=== PATIENT | female | born 1975 | race Caucasian/White ===

== ENCOUNTER → 2017-11-06 | Outpatient (CLI) | payer OTHER | END | disposition home or self-care (01) | LOC: C.PAPS 09:13 | PROVIDERS: ATTEND Physician Assistant | DX: Z12.4 Encounter for screening for malignant neoplasm of cervix (principal) ==

== ENCOUNTER 2021-06-26 12:47 | Observation (INO) ==
[2021-06-26 13:25] LABS: Basophils # (auto) 0.01 K/uL (0-0.2); Basophils % (auto) 0.2 %; Eosinophils # (auto) 0.07 K/uL (0-0.5); Eosinophils % (auto) 1.1 %; Hematocrit (blood only) 27.4 % (37-47); Hemoglobin 8.2 g/dL (12.0-16.0); Immature Granulocytes # (auto) 0.01 K/uL (0.00-0.02); Immature Granulocytes % (auto) 0.2 %; Lymphocytes # (auto) 1.38 K/uL (1.2-3.4); Mean Corpuscular Hemoglobin 23.4 pg (25-34); Mean Corpuscular Hgb Conc 29.9 g/dL (32-36); Mean Corpuscular Volume 78.3 fL (80-100); Monocytes # (auto) 0.55 K/uL (0.11-0.59); Monocytes % (auto) 8.4 %; Neutrophils # (auto) 4.54 K/uL (1.4-6.5); Neutrophils % (auto) 69.1 %; Platelet Count 241 K/uL (130-400); RDW Coefficient of Variation 18.5 % (11.5-14.5); RDW Standard Deviation 52.8 fL (36.4-46.3); White Blood Count 6.56 K/uL (4.8-10.8)
[2021-06-26 13:35] LABS: Partial Thromboplastin Time 25.7 Seconds (21.0-31.0); Prothrombin Time 10.3 Seconds (9.0-12.0)
--- NOTE | 2021-06-26 13:35 | XRay Report ---
XR chest 1V portable CLINICAL HISTORY: Atypical chest pain. COMPARISON STUDY: No previous studies for comparison. FINDINGS: Patient is mildly rotated. Lung volumes are normal. Lungs are clear. There is no pneumothor ax or pleural effusion. Cardiac size is normal. Mediastinal contours are normal. There is no evidence for pulmonary edema. IMPRESSION: No acute cardiopulmonary findings. ACT 112: Negative or not required by law. Electronically signed by: Cedrick Austin M.D. 06/26/2021 1:34 PM
[2021-06-26 13:42] LABS: Alanine Aminotransferase 15 U/L (12-78); Albumin Level 3.6 gm/dl (3.4-5.0); Aspartate Aminotransferase 11 U/L (15-37); BUN Creatinine Ratio 9.9 (10-20); Blood Urea Nitrogen 7 mg/dl (7-18); Calcium 8.8 mg/dl (8.5-10.1); Carbon Dioxide 24 mmol/L (21-32); Chloride 108 mmol/L (98-107); Creatinine Clr Calc Pharmacy 91.6 ml/min; Est GFR (African American) 120.9 ml/min; Est GFR (Non-African American) 104.3 ml/min; Glucose 83 mg/dl (70-99); Potassium 3.5 mmol/L (3.5-5.1); Sodium 139 mmol/L (136-145)
[2021-06-26 13:47] LABS: Alkaline Phosphatase 35 U/L (45-117); Bilirubin,Total 0.3 mg/dl (0.2-1); Globulin 3.6 gm/dl (2.5-4.0); Total Protein 7.2 gm/dl (6.4-8.2); Troponin I < 0.015 ng/ml (0-0.045)
--- NOTE | 2021-06-26 15:01 | Emergency Department Note ---
History of Present Illness General Chief complaint: Chest Pain Stated complaint: Chest Pain Time Seen by Provider: 06/26/21 14:42 Source: patient Mode of arrival: EMS History of Present Illness Provider complaint: Chest pain Onset (ago): hour(s) Location: chest Radiation: non-radiation Pain Consistency: + intermittent and + now resolved Quality: + other (Squeezing and sometimes sharp) Exacerbated By: + none Associated symptoms: no chest pain, no cough, no diaphoresis, no fever/chills, no nausea/vomiting or no shortness of breath This is a 45-year-old female who presents with chest pain starting approximately 11:30 AM this morning. 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 She describes it as a squeezing sensation in the lower sternum with occasional sharp pains. No worsening factors. She has never had similar pain in the past. She does state that the pain does not radiate. She has had 2 days of tenderness to the left arm but she thinks it is from sleeping on it. She did have an episode of tingling down the arm today which went away. She states the pain in her arm is not related to the pain in her chest. She was not short of breath although she states she was panicking when she had the chest pain. She was not diaphoretic. She denies any recent illness, fever, cough or cold symptoms, abdominal pain, vomiting, diarrhea, black or bloody stools, leg swelling or pain, recent immobilization or travel, hormonal control or urinary symptoms. She states that she has a family history of heart disease in her maternal grandparents who both of heart attacks in their 60s. No history of PE. She denies any history of diabetes, hypertension or high cholesterol. She does have a history of anemia for over 14 years since the of her daughter. She does take iron for this intermittently as it gives her constipation. She never smoked. Home Medications Medication Instructions Recorded Confirmed Type No Known Home Medications 06/26/21 06/26/21 History Allergies Allergy/AdvReac Type Severity Reaction Status Date / Time No Known Allergies Allergy Verified 06/26/21 15:37 Past Med/Surg History Medical History Chronic anemia Social History Smoking Status: Never smoker Feels Safe at Home: Yes Review of Systems See HPI for pertinent positives & negatives. and A total of 10 systems reviewed and were otherwise negative Physical Exam Vital Signs Vital Signs - 24 hr 06/26/21 12:50 06/26/21 12:58 06/26/21 13:00 Temperature 37.2 C Temperature Source Oral Pulse Rate 68 63 70 Pulse Rate from SpO2 Sensor 64 68 Pulse Rhythm Regular Pulse Strength Normal Respiratory Rate 17 13 13 Respiratory Effort / Characteristics Non-Labored Respiratory Depth Normal Blood Pressure 110/68 Blood Pressure Mean 82 Blood Pressure Position Lying Pulse Oximetry 100 99 99 Oxygen Delivery Method Room Air Sepsis Recent Fever Within 48 Hours Yes Sepsis New/Unexplained Change in Mental Status No Sepsis Action Taken by Nursing No Action Required 06/26/21 13:13 06/26/21 13:20 06/26/21 13:30 Temperature Temperature Source Pulse Rate 86 70 66 Pulse Rate from SpO2 Sensor 71 72 69 Pulse Rhythm Pulse Strength Respiratory Rate 21 20 16 Respiratory Effort / Characteristics Respiratory Depth Blood Pressure 101/67 Blood Pressure Mean 78 Blood Pressure Position Pulse Oximetry 98 100 100 Oxygen Delivery Method Sepsis Recent Fever Within 48 Hours Sepsis New/Unexplained Change in Mental Status Sepsis Action Taken by Nursing 06/26/21 13:40 06/26/21 13:50 06/26/21 14:00 Temperature Temperature Source Pulse Rate 68 65 70 Pulse Rate from SpO2 Sensor 70 66 70 Pulse Rhythm Pulse Strength Respiratory Rate 21 18 14 Respiratory Effort / Characteristics Respiratory Depth Blood Pressure 103/68 Blood Pressure Mean 79 Blood Pressure Position Pulse Oximetry 100 100 100 Oxygen Delivery Method Sepsis Recent Fever Within 48 Hours Sepsis New/Unexplained Change in Mental Status Sepsis Action Taken by Nursing 06/26/21 14:10 06/26/21 14:20 06/26/21 14:30 Temperature Temperature Source Pulse Rate 71 70 70 Pulse Rate from SpO2 Sensor 72 69 71 Pulse Rhythm Pulse Strength Respiratory Rate 15 12 23 Respiratory Effort / Characteristics Respiratory Depth Blood Pressure 110/71 Blood Pressure Mean 84 Blood Pressure Position Pulse Oximetry 100 99 100 Oxygen Delivery Method Sepsis Recent Fever Within 48 Hours Sepsis New/Unexplained Change in Mental Status Sepsis Action Taken by Nursing 06/26/21 14:40 06/26/21 14:50 06/26/21 15:00 Temperature Temperature Source Pulse Rate 69 77 72 Pulse Rate from SpO2 Sensor 71 77 74 Pulse Rhythm Pulse Strength Respiratory Rate 18 17 18 Respiratory Effort / Characteristics Respiratory Depth Blood Pressure 105/67 Blood Pressure Mean 79 Blood Pressure Position Pulse Oximetry 100 99 99 Oxygen Delivery Method Room Air Sepsis Recent Fever Within 48 Hours Sepsis New/Unexplained Change in Mental Status Sepsis Action Taken by Nursing 06/26/21 15:10 06/26/21 15:20 06/26/21 15:30 Temperature Temperature Source Pulse Rate 64 69 70 Pulse Rate from SpO2 Sensor 65 69 71 Pulse Rhythm Pulse Strength Respiratory Rate 18 19 18 Respiratory Effort / Characteristics Respiratory Depth Blood Pressure 106/71 Blood Pressure Mean 82 Blood Pressure Position Pulse Oximetry 98 100 99 Oxygen Delivery Method Room Air Sepsis Recent Fever Within 48 Hours Sepsis New/Unexplained Change in Mental Status Sepsis Action Taken by Nursing 06/26/21 15:40 06/26/21 15:50 06/26/21 16:00 Temperature Temperature Source Pulse Rate 71 72 70 Pulse Rate from SpO2 Sensor 71 73 71 Pulse Rhythm Pulse Strength Respiratory Rate 16 16 19 Respiratory Effort / Characteristics Respiratory Depth Blood Pressure 112/69 Blood Pressure Mean 83 Blood Pressure Position Pulse Oximetry 100 99 98 Oxygen Delivery Method Sepsis Recent Fever Within 48 Hours Sepsis New/Unexplained Change in Mental Status Sepsis Action Taken by Nursing 06/26/21 16:10 06/26/21 16:20 06/26/21 16:30 Temperature Temperature Source Pulse Rate 63 63 68 Pulse Rate from SpO2 Sensor 63 61 70 Pulse Rhythm Pulse Strength Respiratory Rate 16 15 19 Respiratory Effort / Characteristics Respiratory Depth Blood Pressure 110/70 Blood Pressure Mean 83 Blood Pressure Position Pulse Oximetry 98 99 98 Oxygen Delivery Method Room Air Room Air Sepsis Recent Fever Within 48 Hours Sepsis New/Unexplained Change in Mental Status Sepsis Action Taken by Nursing 06/26/21 16:40 06/26/21 16:50 06/26/21 17:15 Temperature Temperature Source Pulse Rate 65 71 63 Pulse Rate from SpO2 Sensor 68 69 Pulse Rhythm Pulse Strength Respiratory Rate 18 23 18 Respiratory Effort / Characteristics Respiratory Depth Blood Pressure Blood Pressure Mean Blood Pressure Position Pulse Oximetry 98 98 98 Oxygen Delivery Method Sepsis Recent Fever Within 48 Hours Sepsis New/Unexplained Change in Mental Status Sepsis Action Taken by Nursing 06/26/21 17:20 06/26/21 17:30 06/26/21 17:40 Temperature Temperature Source Pulse Rate 63 65 80 Pulse Rate from SpO2 Sensor Pulse Rhythm Pulse Strength Respiratory Rate 16 18 16 Respiratory Effort / Characteristics Respiratory Depth Blood Pressure Blood Pressure Mean Blood Pressure Position Pulse Oximetry 98 Oxygen Delivery Method Room Air Sepsis Recent Fever Within 48 Hours Sepsis New/Unexplained Change in Mental Status Sepsis Action Taken by Nursing 06/26/21 17:50 06/26/21 18:00 Temperature Temperature Source Pulse Rate 61 87 Pulse Rate from SpO2 Sensor Pulse Rhythm Pulse Strength Respiratory Rate 15 22 Respiratory Effort / Characteristics Respiratory Depth Blood Pressure 99/65 L Blood Pressure Mean 76 Blood Pressure Position Pulse Oximetry 98 98 Oxygen Delivery Method Sepsis Recent Fever Within 48 Hours Sepsis New/Unexplained Change in Mental Status Sepsis Action Taken by Nursing Constitutional: Vital signs reviewed. Eyes: Pupils are equal round reactive to light. Conjunctiva are noninjected. ENT: Pharynx is clear without erythema or exudate. Mucous membranes are moist. Neck supple without meningeal signs. Respiratory: Clear to auscultation bilaterally. Breath sounds are equal bilaterally. Cardiovascular: Regular rate and rhythm. No rubs or gallops. GI: Soft, nondistended and nontender. Bowel sounds are present. Musculoskeletal: No peripheral edema. No lower extremity tenderness. Mild tenderness to the lower sternum. Integumentary: No cyanosis. or jaundice. Neurological: The patient is awake and alert. No focal deficits. Psychiatric: Normal affect. Not anxious appearing. Course Administered Medications Discontinued Medications Acetaminophen (Acetaminophen 325 Mg Tab) 650 mg PO NOW STA Stop: 06/26/21 17:24 Last Admin: 06/26/21 17:30 Dose: 650 mg Documented by: [id number] Medical Decision Making Differential Diagnosis Unstable angina, IA, GERD, PE, pleurisy, costochondritis Medical Records Attestation: I reviewed the patient's medical records. I did perform a limited focused review of portions of the patient's old chart on the electronic medical record. The patient has had no recent pertinent visits to this hospital. She did have a hemoglobin of 8.6 in July 2020. Home Medications Current Medication List: was personally reviewed by me Laboratory Data Attestation: I reviewed the patient's lab results. Result diagrams: 06/26/21 21:38 06/26/21 12:45 Lab Results 06/26/21 06/26/21 06/26/21 Range/Units 12:45 12:45 12:45 WBC 6.56 (4.8-10.8) K/uL RBC 3.50 L (4.2-5.4) M/uL Hgb 8.2 L (12.0-16.0) g/dL Hct 27.4 L (37-47) % MCV 78.3 L (80-100) fL MCH 23.4 L (25-34) pg MCHC 29.9 L (32-36) g/dL RDW Std Deviation 52.8 H (36.4-46.3) fL RDW Coeff of Julian 18.5 H (11.5-14.5) % Plt Count 241 (130-400) K/uL MPV 11.0 H (7.4-10.4) fL Immature Gran % (Auto) 0.2 % Neut % (Auto) 69.1 % Lymph % (Auto) 21.0 % [place] % (Auto) 8.4 % Eos % (Auto) 1.1 % Baso % (Auto) 0.2 % Neut # (Auto) 4.54 (1.4-6.5) K/uL Lymph # (Auto) 1.38 (1.2-3.4) K/uL [place] # (Auto) 0.55 (0.11-0.59) K/uL Eos # (Auto) 0.07 (0-0.5) K/uL Baso # (Auto) 0.01 (0-0.2) K/uL Immature Gran # (Auto) 0.01 (0.00-0.02) K/uL PT 10.3 (9.0-12.0) Seconds INR 1.0 (0.9-1.1) APTT 25.7 (21.0-31.0) Seconds PTT Ratio 1.0 D-Dimer (0-500) ug/L FEU Sodium 139 (136-145) mmol/L Potassium 3.5 (3.5-5.1) mmol/L Chloride 108 H (98-107) mmol/L Carbon Dioxide 24 (21-32) mmol/L Anion Gap 7.0 (3-11) BUN 7 (7-18) mg/dl Creatinine 0.71 (0.6-1.2) mg/dl Est Cr Clr Drug Dosing 91.6 ml/min Est GFR ( Amer) 120.9 ml/min Est GFR (Non-Af Amer) 104.3 ml/min BUN/Creatinine Ratio 9.9 L (10-20) Glucose 83 (70-99) mg/dl Calcium 8.8 (8.5-10.1) mg/dl Total Bilirubin 0.3 (0.2-1) mg/dl AST 11 L (15-37) U/L ALT 15 (12-78) U/L Alkaline Phosphatase 35 L (45-117) U/L Troponin I < 0.015 (0-0.045) ng/ml Total Protein 7.2 (6.4-8.2) gm/dl Albumin 3.6 (3.4-5.0) gm/dl Globulin 3.6 (2.5-4.0) gm/dl Albumin/Globulin Ratio 1.0 (0.9-2) COVID-19 Eval Order SARS-CoV-2 (PCR) (Negative) 06/26/21 06/26/21 06/26/21 Range/Units 12:45 16:00 16:00 WBC (4.8-10.8) K/uL RBC (4.2-5.4) M/uL Hgb (12.0-16.0) g/dL Hct (37-47) % MCV (80-100) fL MCH (25-34) pg MCHC (32-36) g/dL RDW Std Deviation (36.4-46.3) fL RDW Coeff of Julian (11.5-14.5) % Plt Count (130-400) K/uL MPV (7.4-10.4) fL Immature Gran % (Auto) % Neut % (Auto) % Lymph % (Auto) % [place] % (Auto) % Eos % (Auto) % Baso % (Auto) % Neut # (Auto) (1.4-6.5) K/uL Lymph # (Auto) (1.2-3.4) K/uL [place] # (Auto) (0.11-0.59) K/uL Eos # (Auto) (0-0.5) K/uL Baso # (Auto) (0-0.2) K/uL Immature Gran # (Auto) (0.00-0.02) K/uL PT (9.0-12.0) Seconds INR (0.9-1.1) APTT (21.0-31.0) Seconds PTT Ratio D-Dimer 210 (0-500) ug/L FEU Sodium (136-145) mmol/L Potassium (3.5-5.1) mmol/L Chloride (98-107) mmol/L Carbon Dioxide (21-32) mmol/L Anion Gap (3-11) BUN (7-18) mg/dl Creatinine (0.6-1.2) mg/dl Est Cr Clr Drug Dosing ml/min Est GFR ( Amer) ml/min Est GFR (Non-Af Amer) ml/min BUN/Creatinine Ratio (10-20) Glucose (70-99) mg/dl Calcium (8.5-10.1) mg/dl Total Bilirubin (0.2-1) mg/dl AST (15-37) U/L ALT (12-78) U/L Alkaline Phosphatase (45-117) U/L Troponin I (0-0.045) ng/ml Total Protein (6.4-8.2) gm/dl Albumin (3.4-5.0) gm/dl Globulin (2.5-4.0) gm/dl Albumin/Globulin Ratio (0.9-2) COVID-19 Eval Order Covid19 at [facility] SARS-CoV-2 (PCR) NEGATIVE (Negative) Imaging Data Radiologist's Impression: Chest X-Ray 06/26/21 13:16 XR chest 1V portable CLINICAL HISTORY: Atypical chest pain. COMPARISON STUDY: No previous studies for comparison. FINDINGS: Patient is mildly rotated. Lung volumes are normal. Lungs are clear. There is no pneumothorax or pleural effusion. Cardiac size is normal. Mediastinal contours are normal. There is no evidence for pulmonary edema. IMPRESSION: No acute cardiopulmonary findings. ACT 112: Negative or not required by law. Electronically signed by: Cedrick Austin M.D. 06/26/2021 1:34 PM ECG Data Attestation: I personally reviewed and interpreted this ECG as follows: Indication: + chest pain Rate (beats per minute): 66 Rhythm: + normal sinus ECG [place]: + Normal ECG ST segments: + Nonspecific ST abnormalities; no ST elevation ECG Findings: no PVCs Additional Comments: Twelve-lead EKG per my interpretation demonstrates normal sinus rhythm at a rate of 70 bpm. Low voltage QRS. There are some nonspecific ST depressions in inferior lateral leads. No ST elevations. MDM Narrative I did evaluate the patient as noted above. The patient is presenting with chest pain which she describes as a squeezing pain in the middle of her chest. She had no other significant symptoms with this. Currently she has not having chest pain but states that it comes and goes. She was given aspirin and nitroglycerin by the paramedics. IV access was established. I did place an order for continuous cardiac monitoring. The monitor showed normal sinus rhythm at a rate of 65 bpm. I did order and personally review the patient's 12-lead EKG as described above. She has some mild ST depressions in the inferolateral leads. I did order and personally reviewed the images of the patient's chest x-ray as described above. Her chest x-ray is unremarkable. I did order and review the patient's blood work as noted in the electronic medical record. CBC demonstrates significant anemia with a hemoglobin of 8.2. Platelet count is within normal limits. Last hemoglobin here was 8.6 in July of last year. D-dimer is negative. Troponin is negative. Electrolytes are unremarkable. Covid screening is negative. I did reassess the patient. She is not currently having any chest pain. I did discuss the test results with her. I did recommend hospitalization for repeat serum cardiac biomarkers given her chest pain and abnormal EKG. She was agreeable and I did discuss the case with the hospitalist and director case management. Impression & Plan Chest pain, Abnormal ECG Discharge Plan Visit Data Chief Complaint: Chest Pain Stated Complaint: Chest Pain ED Provider: Christiano Kong Discharge Problem: Chest pain, Abnormal ECG Patient Disposition: Being Evaluated by Hospitalist
[2021-06-26 15:10] LABS: D Dimer 210 ug/L FEU (0-500)
[2021-06-26] MEDS ORDERED: ACETAMINOPHEN 325 MG TAB PO STA (17:23)
[2021-06-26] MEDS ORDERED: ONDANSETRON INJ 2 MG/ML 2 ML VIAL IV PRN (18:14)
[2021-06-26] MEDS ORDERED: ACETAMINOPHEN 325 MG TAB PO PRN (18:14)
[2021-06-26] MEDS ORDERED: NITROGLYCERIN SL 0.4 MG/TAB TAB SL PRN (18:14)
--- NOTE | 2021-06-26 20:23 | History & Physical Report ---
Date of Service June 26, 2021 Assessment & Plan (1) Chest pain: Plan: WILL ADMIT under OBSERVATION check cardiac markers. obtain stress test in AM. trop initially negative. doubt pain is cardiac in nature, however due to anemia,perhaps demand ischemia (2) Chronic anemia: Plan: will check iron studies in AM Patient does report having heavy menstruations. This could easily explain her anemia, however will need to confirm iron studies. Admission and Anticipated Discharge Date Admission Date: June 26, 2021 History of Present Illness Chief Complaint: chest pain Primary Care Provider: Brian Domingo III, YAHIR This is a pleasant 45 yo female who presents with intermittent mid sternum pressure-like chest pain. She reports this began at 11:30. She denies any radiation. She reports that earlier in the week she had pain in her left shoulder but she relates that to sleeping awkwardly. The patient denies any SOB, diaphoresis, or feeling of impending doom. She does have FMH of CAD, but no premature cases. Patient also reports having dizziness but this is long standing and has been ongoing for over a year. Patient does not follow regularly with her PCP. FMH: Maternal grandparents who both of heart attacks in their 60s. Allergies Allergy/AdvReac Type Severity Reaction Status Date / Time No Known Allergies Allergy Verified 06/26/21 15:37 Home Medications Medication Instructions Recorded Confirmed Type No Known Home Medications 06/26/21 06/26/21 History Past Med/Surg History Medical History Chronic anemia Social History Smoking Status: Never smoker Feels Safe at Home: Yes Physical Exam Constitutional: WD/WN, vitals as above Eyes: PERRL, conjunctivae normal, anicteric sclerae ENMT: external ear and nose normal, oropharynx normal Neck: trachea midline, no thyromegaly Respiratory: normal respiratory effort, lungs clear to auscultation Cardiovascular: RRR, no murmur, no edema Gastrointestinal (Abdomen): normal bowel sounds, soft, nontender, no hepatosplenomegaly Musculoskeletal: no cyanosis or clubbing, extremities motor strength 5/5 Skin: no rashes, warm and dry Neurologic: PERRL, EOMI, accommodation nl, no face palsy, no dysarthria Psychiatric: A+Ox3, euthymic affect Lymphatic: no cervical or axillary lymphadenopathy Results & Data Results & Data ([facility]) Vital Signs (Past 12 Hours) Vital Signs Temp Pulse Resp BP Pulse Ox 06/26/21 19:00 64 19 06/26/21 18:50 67 17 06/26/21 18:40 66 17 98 06/26/21 18:30 89 18 96 06/26/21 18:20 68 18 96 06/26/21 18:10 63 18 98 06/26/21 18:00 87 22 99/65 L 98 06/26/21 17:50 61 15 98 06/26/21 17:40 80 16 06/26/21 17:30 65 18 06/26/21 17:20 63 16 98 06/26/21 17:15 63 18 98 06/26/21 16:50 71 23 98 06/26/21 16:40 65 18 98 06/26/21 16:30 68 19 110/70 98 06/26/21 16:20 63 15 99 06/26/21 16:10 63 16 98 06/26/21 16:00 70 19 112/69 98 06/26/21 15:50 72 16 99 06/26/21 15:40 71 16 100 06/26/21 15:30 70 18 106/71 99 06/26/21 15:20 69 19 100 06/26/21 15:10 64 18 98 06/26/21 15:00 72 18 105/67 99 06/26/21 14:50 77 17 99 06/26/21 14:40 69 18 100 06/26/21 14:30 70 23 110/71 100 06/26/21 14:20 70 12 99 06/26/21 14:10 71 15 100 06/26/21 14:00 70 14 103/68 100 06/26/21 13:50 65 18 100 06/26/21 13:40 68 21 100 06/26/21 13:30 66 16 101/67 100 06/26/21 13:20 70 20 100 06/26/21 13:13 86 21 98 06/26/21 13:00 70 13 99 06/26/21 12:58 63 13 99 06/26/21 12:50 37.2 C 68 17 110/68 100 PG Care Time/CCT Total # of Minutes Spent Total Time Spent with Patient: Total time spent is greater than 50% in coordination of care (as documented) at patient's floor/unit and/or counseling patient: Coding Level of Care Code INT OBSERVATION CARE 70M LVL 3 Diagnoses Chest pain R07.9 Chronic anemia D64.9
[2021-06-26 21:51] LABS: Hematocrit (blood only) 28.6 % (37-47); Hemoglobin 8.7 g/dL (12.0-16.0)
[2021-06-27 06:52] LABS: Ferritin 2.3 ng/ml (8-388); Iron 19 mcg/dl (35-150); Total Iron Binding Capacity 418 mcg/dl (250-450); Troponin I < 0.015 ng/ml (0-0.045)
[2021-06-27] MEDS ORDERED: FLUARIX QUADRIVALENT 0.5 ML SYR IM ONE (08:00)
[2021-06-27] MEDS ORDERED: ASPIRIN 81 MG ECTAB PO SCH (09:00)
--- NOTE | 2021-06-27 13:02 | Electrocardiogram Report ---
Test Reason : Blood Pressure : / mmHG Vent. Rate : 066 BPM Atrial Rate : 066 BPM P-R Int : 114 ms QRS Dur : 084 ms QT Int : 412 ms P-R-T Axes : -06 044 -01 degrees QTc Int : 431 ms Normal sinus rhythm Possible Anterior infarct , age undetermined Abnormal ECG No previous ECGs available Confirmed by Donaldo Gandara ([id number]) on 06/27/2021 1:01:51 PM Referred By: Confirmed By:Donaldo Gandara
--- NOTE | 2021-06-27 13:05 | XCELERA ---
[id number]
--- NOTE | 2021-06-27 13:22 | Electrocardiogram Report ---
Test Reason : Blood Pressure : / mmHG Vent. Rate : 070 BPM Atrial Rate : 070 BPM P-R Int : 142 ms QRS Dur : 082 ms QT Int : 418 ms P-R-T Axes : 071 050 012 degrees QTc Int : 451 ms Normal sinus rhythm Low voltage QRS Cannot rule out Anterior infarct (cited on or before 26-JUN-2021) Abnormal ECG When compared with ECG of 26-JUN-2021 12:50, (unconfirmed) No significant change was found Confirmed by Donaldo Gandara ([id number] on 06/27/2021 1:21:50 PM Referred By: REFERRED SELF Confirmed By:Donaldo Gandara
[2021-06-27] MEDS ORDERED: IRON SUCROSE 200 MG in 0.9 % SODIUM CHLORIDE 100 ML IV ONE (15:00)
--- NOTE | 2021-06-27 19:26 | Discharge Summary ---
Date of Service June 27, 2021 Admission HPI Per Admitting Provider This is a pleasant 45 yo female who presents with intermittent mid sternum pressure-like chest pain. She reports this began at 11:30. She denies any radiation. She reports that earlier in the week she had pain in her left shoulder but she relates that to sleeping awkwardly. The patient denies any SOB, diaphoresis, or feeling of impending doom. She does have FMH of CAD, but no premature cases. Patient also reports having dizziness but this is long standing and has been ongoing for over a year. Patient does not follow regularly with her PCP. FMH: Maternal grandparents who both of heart attacks in their 60s. Principal Diagnosis non cardiac chest pain iron deficiency anemia Discharge Exam The patient appeared well Vital signs as documented. Lungs are clear to auscultation and appear unlabored Cardiac exam, Rhythm is regular.. No murmurs, rubs or gallops. Abdominal exam reveals normal bowel sounds, soft non tender, no masses Extremities are nonedematous and both pedal pulses are normal. Neurologic exam is alert and oriented, no focal loss of strength or sensation Skin is without bruises or rashes Psychologically is without concerns for anxiety or depression. 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 (2) Chronic anemia: Deficiency is confirmed in the face of heavy menstruation. Given Venofer in the hospital recommended vitamins and outpatient follow-up with gynecology Total Time Total Time Spent Total Time Spent (In Minutes): It required greater than 30 minutes to prepare this patient for discharge Discharge Plan Discharge Items Patient Disposition: Home - Self-Care Reason For Visit: CHEST PAIN Discharge Diagnosis: non cardiac chest pain, negative stress test iron deficiency anemia Activity: Per Instructions section Activity Comment: slowly increase activity Non-emergency contact: Primary Care Provider and Patient Account Specialist Call non-emergency contact if: you have any medication questions and your symptoms worsen Follow-up/Referrals: Brian Domingo III, CRNP [Primary Care Provider] - Diet: Regular Addtl Attending Provider Instructions: Good news your stress test is negative meaning that the chest pain you were feeling is not related to your heart. You have been identified to have iron deficiency anemia that maybe associated with your heavy periods, please consider Gyne referral Please remember that you need to take time to relieve stress in your life, now more than every make time to take time to care for yourself. Pending Studies at Discharge: No Stand-Alone Forms: My [facility] Compliance Control, Smoking Cessation Medications and DC Order Prescriptions: New [id number] [id number] 30 mg iron- 1.4 mg-300 mg combo pack 1 pkg PO DAILY Qty: 60 RF: 0 Discharge Orders: Discharge Order (Routine); Ordered 06/27/21 Ordered By: Christiano Hanson/Other Patient Handouts: Measuring Your Pain Admission Data Admit Date/Time: 06/26/21 18:09 Attending Provider: Christiano Trammell Admit Provider: Theron Shannon Primary Care Provider: Brian Domingo III Other Providers: Theron Shannon Other Interventions: Discharge Summary Assessment (RN) Last Done: 06/27/21 16:54 Coding Level of Care Code D/C DAY MANAGEMENT >30 MINS Diagnoses Chest pain R07.9 Chronic anemia D64.9
== END 2021-06-27 17:20 | disposition home or self-care (01) ==
LOC: ED 12:47 → EDINP 12:47 → SUATTDRO 18:09 → 2N 23:35